=== PATIENT | male | born 1975 | race Caucasian/White ===

== ENCOUNTER → 2016-07-24 | Outpatient (CLI) | payer OTHER ==
[~2016-07-24] MED LIST: ASPI325T39 PO; BUSP15TA70 PO; BUSP1TAB46 PO; CZR50 PO; EPIN1INJ37 IM; EPP3/2 IM; LMS250 PO; LOSA50TA6 PO; PRT/40 PO; RANI150T2 PO; RBX750 PO; ZNTT/150 PO
== END | disposition home or self-care (01) ==
LOC: C.PATHSPEC 12:12
PROVIDERS: ATTEND Urology
DX: Z30.2 Encounter for sterilization (principal); D49.2 Neoplasm of unspecified behavior of bone, soft tissue, and skin

== ENCOUNTER 2016-08-07 21:27 | Emergency (ER) | payer OTHER ==
[~2016-08-07] VITALS: Ht 175.3 cm; Wt 94.0 kg
[~2016-08-07 21:27] MED LIST changes: -ASPI325T39 PO; -BUSP15TA70 PO; -BUSP1TAB46 PO; -CZR50 PO; -EPIN1INJ37 IM; -LMS250 PO; -LOSA50TA6 PO; -PRT/40 PO; -RANI150T2 PO; -RBX750 PO; -ZNTT/150 PO
[2016-08-07 21:32] VITALS: TEMP 37; Ht 175.3 cm; Wt 94.0 kg
[2016-08-07] MEDS ORDERED: BUSP1TAB46 PO (21:55)
[2016-08-07] MEDS ORDERED: LMS250 PO (21:55)
[2016-08-07] MEDS ORDERED: ASPI325T39 PO (21:56)
[2016-08-07 22:19] LABS: BASO % 0.4 %; BASO ABS # 0.03 K/uL (0-0.2); COMPLETE YES; EOS % 1.9 %; HEMATOCRIT 40.5 % (42-52); IG% 0.1 %; LYMPH % 25.1 %; LYMPH ABS # 1.94 K/uL (1.2-3.4); MEAN CELL VOLUME 86.4 fL (80-100); MEAN CORPUSCULAR HEMOGLOBIN 30.5 pg (25-34); MEAN CORPUSCULAR HGB CONC 35.3 g/dl (32-36); MEAN PLATELET VOLUME 9.8 fL (7.4-10.4); MONO % 8.7 %; NEUT % 63.8 %; PLATELET COUNT 253 K/uL (130-400); RED BLOOD COUNT 4.69 M/uL (4.7-6.1); WHITE BLOOD COUNT 7.72 K/uL (4.8-10.8)
--- NOTE | 2016-08-07 22:49 | DIAGNOSTIC IMAGING REPORT ---
CHEST ONE VIEW PORTABLE HISTORY: Atypical CHEST PAIN COMPARISON: Chest 09/13/2015. FINDINGS: The lungs are clear. Cardiac silhouette is normal in size. No pleural effusions. No pneumothorax. IMPRESSION: No acute process. Electronically signed by: Gianni Real M.D. 08/07/2016 10:48 PM Dictated Date/Time: 08/07/2016 10:46 PM
[2016-08-07 23:06] LABS: ALKALINE PHOSPHATASE 62 U/L (45-117); ALT/SGPT 17 U/L (12-78); BLOOD UREA NITROGEN 16 mg/dl (7-18); BUN/CREATININE RATIO 14.5 (10-20); CALCIUM 8.9 mg/dl (8.5-10.1); CARBON DIOXIDE 25 mmol/L (21-32); CHLORIDE 102 mmol/L (98-107); GLUCOSE 103 mg/dl (70-99)
[2016-08-07 23:12] LABS: POTASSIUM 3.9 mmol/L (3.5-5.1); SODIUM 139 mmol/L (136-145)
[2016-08-07 23:18] LABS: AST/SGOT 11 U/L (15-37)
--- NOTE | 2016-08-08 00:07 | EMERGENCY ROOM VISIT NOTE ---
History First contact with patient: 22:03 Chief Complaint: CHEST PAIN Stated Complaint: CHEST PAINS Nursing Triage Summary: Pt recently dx with HTN. Pt seen by PCP today, bloodwork done, no meds prescribed. Pt told to come to ED if he developed chest pain. Pt reports chest pain started appreeox 2 hours ago. Reports intermittent chest pain. History of Present Illness The patient is a 41 year old male who presents to the Emergency Room with complaints of a few episodes of chest pain lasted 30 seconds tonight. Patient states he's been stressed over his newly diagnosed high blood pressure. He found this out Thursday at a health fair. He saw his family care doctor today and had laboratory workup. He follows up in a few days to begin medications. He has not started anything. Patient states he was sitting there when the chest pain came on and lasted for about 30 seconds. He had 5 episodes of this. He is currently pain-free. Patient denies prolonged chest pain, radiating pain, dyspnea, abdominal pain, fever, chills, diaphoresis, nausea, vomiting, diarrhea, leg pain or swelling. No recent travel. He does not smoke. No diabetes. He does have a family history of heart disease of his father having heart attack at age 51. Review of Systems See HPI for pertinent positives & negatives. A total of 10 systems reviewed and were otherwise negative. Past Medical/Surgical History Hypertension, vasectomy Family History Heart disease Social History Smoking Status: Never Smoker Alcohol Use: none Drug Use: none Marital Status: Housing Status: lives with family Occupation Status: employed Current/Historical Medications Scheduled Aspirin (Aspirin Ec), 325 MG PO DIRECTED Buspirone Hcl (Buspirone Hcl), 7.5 MG PO HS Epinephrine (Epipen), 0.3 MG IM UD Terbinafine (Terbinafine HCl), 250 MG PO DAILY Allergies Coded Allergies: BEE STING (Verified Allergy, Severe, ANAPHYLAXIS, 08/07/16) Iodine (Verified Allergy, Unknown, ., 08/07/16) Penicillins (Verified Allergy, Unknown, ., 08/07/16) Shellfish (Verified Allergy, Unknown, ., 08/07/16) Physical Exam Vital Signs Date Time Temp Pulse Resp B/P Pulse Ox O2 Delivery O2 Flow Rate FiO2 08/07/16 22:40 79 20 154/98 Room Air 08/07/16 22:10 Room Air 08/07/16 22:10 Room Air 08/07/16 21:53 87 08/07/16 21:32 37.0 99 18 182/112 98 Room Air Physical Exam VITALS: Vitals are noted on the nurse's note and reviewed by myself. Vital signs hypertensive GENERAL: Pleasant male anxious-appearing, in no acute distress, nondiaphoretic, well-developed well-nourished. SKIN: The skin was without rashes, erythema, edema, or bruising. There is no tenting of the skin. Capillary reflex less than 2 seconds. HEAD: Normocephalic atraumatic. EARS: External auditory canals clear, tympanic membranes pearly de la torre without erythema or effusion bilaterally. EYES: Pupils equal round and reactive to light and accommodation. Conjunctivae without injection, sclerae without icterus. Extraocular movements intact. NOSE: Patent, turbinates without inflammation or discharge. MOUTH: Mucous membranes moist. Pharynx without erythema or exudate. Uvula midline. Airway patent. Tongue does not deviate. NECK: Supple without nuchal rigidity. No lymphadenopathy. No thyromegaly. Cervical spine is nontender. No JVD. HEART: Regular rate and rhythm without murmurs gallops or rubs. Chest nontender to palpation LUNGS: Clear to auscultation bilaterally without wheezes, rales or rhonchi. No dullness to percussion. No retractions or accessory muscle use. ABDOMEN: Positive bowel sounds x 4. Normal tympanic percussion. Soft, nontender, without masses or organomegaly. Duncan sign negative. No guarding or rebound tenderness. MUSCULOSKELETAL: No muscle atrophy, erythema, or edema noted. NEURO: Patient was alert and oriented to person place and time. Normal sensation to light and sharp touch. No focal neurological deficits. Medical Decision & Procedures Laboratory Results 08/07/16 21:40 Red Blood Count 4.69, Mean Corpuscular Volume 86.4, Mean Corpuscular Hemoglobin 30.5, Mean Corpuscular Hemoglobin Concent 35.3, Mean Platelet Volume 9.8, Neutrophils (%) (Auto) 63.8, Lymphocytes (%) (Auto) 25.1, Monocytes (%) (Auto) 8.7, Eosinophils (%) (Auto) 1.9, Basophils (%) (Auto) 0.4, Neutrophils # (Auto) 4.92, Lymphocytes # (Auto) 1.94, Monocytes # (Auto) 0.67, Eosinophils # (Auto) 0.15, Basophils # (Auto) 0.03 08/07/16 21:40 Test 08/07/16 21:40 08/07/16 23:34 White Blood Count 7.72 K/uL (4.8-10.8) Red Blood Count 4.69 M/uL (4.7-6.1) Hemoglobin 14.3 g/dL (14.0-18.0) Hematocrit 40.5 % (42-52) Mean Corpuscular Volume 86.4 fL (80-100) Mean Corpuscular Hemoglobin 30.5 pg (25-34) Mean Corpuscular Hemoglobin Concent 35.3 g/dl (32-36) Platelet Count 253 K/uL (130-400) Mean Platelet Volume 9.8 fL (7.4-10.4) Neutrophils (%) (Auto) 63.8 % Lymphocytes (%) (Auto) 25.1 % Monocytes (%) (Auto) 8.7 % Eosinophils (%) (Auto) 1.9 % Basophils (%) (Auto) 0.4 % Neutrophils # (Auto) 4.92 K/uL (1.4-6.5) Lymphocytes # (Auto) 1.94 K/uL (1.2-3.4) Monocytes # (Auto) 0.67 K/uL (0.11-0.59) Eosinophils # (Auto) 0.15 K/uL (0-0.5) Basophils # (Auto) 0.03 K/uL (0-0.2) RDW Standard Deviation 39.5 fL (36.4-46.3) RDW Coefficient of Variation 12.5 % (11.5-14.5) Immature Granulocyte % (Auto) 0.1 % Immature Granulocyte # (Auto) 0.01 K/uL (0.00-0.02) Anion Gap 12.0 mmol/L (3-11) Est Creatinine Clear Calc Drug Dose 102.1 ml/min Estimated GFR () 97.5 Estimated GFR (Non- 84.1 BUN/Creatinine Ratio 14.5 (10-20) Calcium Level 8.9 mg/dl (8.5-10.1) Total Bilirubin 0.3 mg/dl (0.2-1) Direct Bilirubin 0.1 mg/dl (0-0.2) Aspartate Amino Transf (AST/SGOT) 11 U/L (15-37) Alanine Aminotransferase (ALT/SGPT) 17 U/L (12-78) Alkaline Phosphatase 62 U/L (45-117) Troponin I < 0.015 ng/ml (0-0.045) Total Protein 8.2 gm/dl (6.4-8.2) Albumin 4.5 gm/dl (3.4-5.0) Lipase 143 U/L (73-393) Bedside Troponin I 0.000 ng/ml (0-0.045) ED Course Prior records/ancillary studies reviewed. Triage Nursing notes reviewed. Additional history obtained from family. The patient's history was concerning for chest pain. Differential diagnosis: Etiologies such as cardiac ischemia, aortic dissection, pulmonary embolism, pneumonia, pneumothorax, musculoskeletal, infections, pericarditis, myocarditis , esophageal rupture, gastrointestinal, as well as others were entertained. Physical examination: As above. ER treatment provided: Patient was observed On reassessment the patient felt better. Diagnostic interpretation by me: The electrocardiogram was negative for pathologic change. Normal sinus, normal , no acute ST-T wave changes. Impression normal sinus rhythm interpreted by myself The labs revealed 2 troponins negative 2 that are 2 hours prior Imaging studies: Chest x-ray as above CHEST ONE VIEW PORTABLE HISTORY: Atypical CHEST PAIN COMPARISON: Chest 09/13/2015. FINDINGS: The lungs are clear. Cardiac silhouette is normal in size. No pleural effusions. No pneumothorax. IMPRESSION: No acute process. Electronically signed by: Gianni Real M.D. Exam and history seem consistent with chest pain unlikely cardiac in etiology. Patient had 2 negative troponins. Symptoms are short-lived. Blood pressure did come down. He is advised to follow-up as scheduled this week with family care for further evaluation and workup for his blood pressure and chest pain symptoms tonight. He was advised to return to the immediate for prolonged chest pain, dyspnea, fevers, worsening signs or symptoms or as needed. By the evaluation outlined above emergent etiologies such as cardiac ischemia, aortic dissection, pulmonary embolism, pneumonia, pneumothorax, infections, pericarditis, myocarditis, gastrointestinal, as well as others were deemed relatively unlikely. The pt informed about the findings as listed above. All questions were answered and pleased with the treatment. Return instructions were outlined and the patient was discharged in stable condition. Referral: The patient was referred back to primary care physician for follow-up in 2 to 3 days for a recheck of the current condition. case reviewed with my Attending. Medical Decision As above Impression Primary Impression: Precordial chest pain Departure Information Dispostion Home / Self-Care Condition GOOD Referrals Rey Ivan III, CRNP (PCP) Patient Instructions My [facility] Additional Instructions Decrease caffeine, alcohol, tobacco and salt intake. Monitor your blood pressure. Acetaminophen(Tylenol) may be used for fever or pain. Use 1000mg every six hours as needed. Avoid using more than 3000mg in a 24 hour period. Rest and drink plenty of fluids as tolerated. Continue current medications. Avoid strenuous activities and anything that worsens your pain. Resume normal activities once your symptoms resolve. Return to the ER immediately for worsening or persistent chest pain, abdominal pain, vomiting, fevers, chest pains, difficulty breathing, worsening of your condition, or as needed. Follow up with your primary physician in 2-3 days for a recheck of your current condition.
[2016-08-08 00:24] VITALS: BP 147/95; PULSE 81; O2SAT 98
[2016-10-07] MEDS ORDERED: ZNTT/150 PO (08:50)
[2016-10-07] MEDS ORDERED: BUSP15TA70 PO (08:50)
[2016-10-07] MEDS ORDERED: LOSA50TA6 PO (08:50)
== END 2016-08-08 00:25 | disposition home or self-care (01) ==
LOC: C.EDB 21:28
DX: R07.2 Precordial pain (principal); I10 Essential (primary) hypertension

== ENCOUNTER → 2016-08-07 | Outpatient (CLI) | payer OTHER ==
[2016-08-07 18:04] LABS: ALT/SGPT 17 U/L (12-78); AST/SGOT 9 U/L (15-37); BLOOD UREA NITROGEN 16 mg/dl (7-18); BUN/CREATININE RATIO 14.3 (10-20); CALCIUM 8.9 mg/dl (8.5-10.1); CARBON DIOXIDE 27 mmol/L (21-32); CHLORIDE 106 mmol/L (98-107); GLUCOSE 88 mg/dl (70-99); MAGNESIUM 2.1 mg/dl (1.8-2.4); POTASSIUM 4.3 mmol/L (3.5-5.1); SODIUM 141 mmol/L (136-145)
[2016-08-07 18:13] LABS: ALB/GLOB RATIO 1.2 (0.9-2); ALKALINE PHOSPHATASE 63 U/L (45-117)
== END | disposition home or self-care (01) ==
LOC: C.LAB1850 16:51
PROVIDERS: ATTEND Nurse Practitioner Family
DX: R03.0 Elevated blood-pressure reading, without diagnosis of hypertension (principal)

== ENCOUNTER → 2016-10-08 | Day surgery (SDC) | payer OTHER ==
[2016-10-07 08:51] VITALS: Ht 175.3 cm; Wt 88.6 kg
[~2016-10-08] VITALS: Ht 175.3 cm; Wt 88.6 kg
[~2016-10-08] MED LIST changes: +BUSP15TA70 PO; +CZR50 PO; +EPIN1INJ37 IM; +LABETALOL HCL IV 5 MG/ML 20ML IV ONE; +LIDOCAINE HCL 2% 2 ML VIAL (20MG/ML) ONE; +LOSA50TA6 PO; +MIDAZOLAM HCL 1 MG/ML 2ML VIAL ONE; +ONDANSETRON INJ 2 MG/ML 2 ML VIAL ONE; +PANT40TA2 PO; +PROPOFOL IV EMULSION 10 MG/ML 20 ML VIAL IV ONE; +RANI150T2 PO; +RBX750 PO; +SODIUM CHLORIDE 0.9% 500ML 500 ML IV ONE; +ZNTT/150 PO
--- NOTE | 2016-10-08 14:21 | Endo History and Physical ---
History & Physical Date of Service: Oct 08, 2016. Chief Complaint: epigastric pain,dysphagia Referring Physician: RAMO Prather III History of Present Illness 41 yo CM who presents for EGD secondary to epigastric abdominal pain and dysphagia. Past Surgical History Hx Cardiac Surgery: No Hx Internal Defibrillator: No Hx Pacemaker: No Hx Abdominal Surgery: No Hx Post-Op Nausea and Vomiting: No Hx Cancer Surgery: No Hx Thoracic Surgery: No Hx Orthopedic: Yes (ORIF RT FEMUR) Hx Urinary Tract Surgery: No Family History Polyp Social History Smoking Status: Never Smoker Hx Substance Use: No Hx Alcohol Use: No Allergies Coded Allergies: BEE STING (Verified Allergy, Severe, ANAPHYLAXIS, 10/07/16) Penicillins (Verified Allergy, Unknown, HIVES, 10/07/16) Uncoded Allergies: IODINE IN SHELLFISH (Allergy, Unknown, hives, 10/08/16) Current Medications Reported Home Medications Medications Dose Route/Sig Max Daily Dose Days Date Category Buspar (Buspirone Hcl) 15 Mg Tab 0.5 Tab PO BID 30 10/07/16 Reported Zantac (Ranitidine HCl) 150 Mg Tab 150 Mg PO BID 10/07/16 Reported Cozaar (Losartan Potassium) 50 Mg Tab 50 Mg PO BID 10/07/16 Reported Epipen (Epinephrine) 0.3 Mg/0.3 Ml Inj 0.3 Mg IM UD 09/13/15 Reported Vital Signs Weight (Kilograms): 88.64 Height (Feet): 5 Height (Inches): 9 Date Time Temp Pulse Resp B/P Pulse Ox O2 Delivery O2 Flow Rate FiO2 10/08/16 14:13 36.8 96 20 156/83 100 Room Air Physical Exam General Appearance: WD/WN, no apparent distress Respiratory/Chest: Auscultation: breath sounds normal Cardiovascular: Heart Auscultation: RRR Abdomen: Bowel Sounds: normal Inspection & Palpation: soft, non-distended, no tenderness, guarding & rebound Assessment and Plan Assessment: 41 yo CM who presents for EGD secondary to epigastric abdominal pain and dysphagia. Plan: Proceed with EGD.
--- NOTE | 2016-10-08 15:29 | GI REPORT ---
Procedure Date: 10/08/2016 2:47 PM Procedure: Upper GI endoscopy Indications: Epigastric abdominal pain, Dysphagia, Unexplained chest pain Medicines: Monitored Anesthesia Care Complications: No immediate complications. Estimated Blood Loss: Estimated blood loss: none. Procedure: Pre-Anesthesia Assessment: - Prior to the procedure, a History and Physical was performed, and patient medications and allergies were reviewed. The patient's tolerance of previous anesthesia was also reviewed. The risks and benefits of the procedure and the sedation options and risks were discussed with the patient. All questions were answered, and informed consent was obtained. Prior Anticoagulants: The patient has taken no previous anticoagulant or antiplatelet agents. ASA Grade Assessment: II - A patient with mild systemic disease. After reviewing the risks and benefits, the patient was deemed in satisfactory condition to undergo the procedure. After obtaining informed consent, the endoscope was passed under direct vision. Throughout the procedure, the patient's blood pressure, pulse, and oxygen saturations were monitored continuously. The scope was introduced through the mouth, and advanced to the second part of duodenum. The upper GI endoscopy was accomplished without difficulty. The patient tolerated the procedure well. Findings: One moderate benign-appearing, intrinsic stenosis was found. This measured 1.5 cm (inner diameter) x 1 cm (in length) and was traversed. A TTS dilator was passed through the scope. Dilation with a 15-16.5-18 mm balloon (to a maximum balloon size of 18 mm) and an 18-19-20 mm balloon (to a maximum balloon size of 20 mm) dilator was performed. The dilation site was examined and showed moderate improvement in luminal narrowing. Biopsies were obtained with cold forceps for histology in a targeted manner in the middle third of the esophagus. The stomach was normal. The examined duodenum was normal. Biopsies for histology were taken with a cold forceps for evaluation of celiac disease. Impression: - Benign-appearing esophageal stenosis. Dilated. - Normal stomach. - Normal examined duodenum. Biopsied. - Biopsies were obtained in the middle third of the esophagus. Recommendation: - Resume previous diet. - Continue present medications. - Await pathology results. - Return to GI office as previously scheduled. Cuba Melendez DO 10/08/2016 3:29:23 PM This report has been signed electronically. Note Initiated On: 10/08/2016 2:47 PM I attest to the content of the Intraoperative Record and orders documented therein, exceptions below
--- NOTE | 2016-10-08 15:30 | Discharge Instructions ---
Endoscopy Patient Instructions Date / Procedure(s) Performed Oct 08, 2016. EGD Allergy Information Coded Allergies: BEE STING (Verified Allergy, Severe, ANAPHYLAXIS, 10/08/16) Penicillins (Verified Allergy, Unknown, HIVES, 10/08/16) Uncoded Allergies: IODINE IN SHELLFISH (Allergy, Unknown, hives, 10/08/16) Discharge Date / Findings Oct 08, 2016. Esophageal stricture s/p dilation to 20mm Esophageal biopsies Duodenal biopsies Medication Instructions OK to resume all medications today as prescribed. Reported Home Medications Medications Dose Route/Sig Max Daily Dose Days Date Category Buspar (Buspirone Hcl) 15 Mg Tab 0.5 Tab PO BID 30 10/07/16 Reported Zantac (Ranitidine HCl) 150 Mg Tab 150 Mg PO BID 10/07/16 Reported Cozaar (Losartan Potassium) 50 Mg Tab 50 Mg PO BID 10/07/16 Reported Epipen (Epinephrine) 0.3 Mg/0.3 Ml Inj 0.3 Mg IM UD 09/13/15 Reported Provider Instructions Activity Restrictions - No exercising or heavy lifting for 24 hours. - Do not drink alcohol the day of the procedure. - Do not drive a car or operate machinery until the day after the procedure. - Do not make any important decisions or sign important papers in 24 hours after the procedure. Following Day: - Return to full activity which may include returning to work/school. Diet Start your diet with liquids and light foods (jello, soup, juice, toast). Then eat your usual diet if not nauseated. Treatment For Common After Affects For mild abdominal pain, bloating, or excessive gas: - Rest - Eat lightly - Lie on right side Follow-Up Information Follow-up with RAMO Prather III as scheduled Anesthesia Information What You Should Know You have had a procedure that required some medicine to reduce anxiety and discomfort. This treatment is called moderate sedation. After receiving the treatment, you may be sleepy, but you will be able to breathe on your own. The effects of the treatment may last for several hours. Follow these instructions along with Activity/Diet recommendations noted above: * Do NOT do anything where dizziness or clumsiness would be dangerous. * Rest quietly at home today, then you can be up and about tomorrow. * Have a responsible person stay with you the rest of today. * You may have had an I.V. today. If so, you may take the dressing off later today. Recommendations Call your doctor if: * Trouble breathing * Continuous vomiting for more than 24 hours * Temperature above 101 degrees * Severe abdominal pain or bloating * Pain not relieved by pain medicine ordered * There is increased drainage or redness from any incision * A large amount of rectal bleeding greater than 2-3 tablespoons. (If you had a polyp/s removed or have hemorrhoids, a small amount of blood - from the rectum is to be expected.) * You have any unanswered questions or concerns. IN THE EVENT OF A SERIOUS EMERGENCY, GO TO THE NEAREST EMERGENCY ROOM Your discharge instructions were prepared by provider Cuba Melendez. Patient Instructions Signature Page Ovidio Thopmson Patient (or Guardian) Signature/Date: I have read and understand the instructions given to me by my caregivers. Caregiver/RN/Doctor Signature/Date: The above-named patient and/or guardian has received patient instructions on this date. + Original Patient Signature Page (only) stays with chart. Please make copy for patient.
[2016-10-08 15:44] VITALS: BP 130/82; PULSE 80; O2SAT 99
--- NOTE | 2016-10-08 16:24 | Anesthesia Progress Nt - [facility] ---
Anesthesia Post Op Note Date & Time Oct 08, 2016 at 16:23 Vital Signs Pain Intensity: 0 Vital Signs Past 12 Hours Date Time Temp Pulse Resp B/P Pulse Ox O2 Delivery O2 Flow Rate FiO2 10/08/16 15:44 80 16 130/82 99 Room Air 10/08/16 15:29 83 16 126/85 100 Room Air 10/08/16 15:14 84 16 113/69 100 Room Air 10/08/16 14:13 36.8 96 20 156/83 100 Room Air Notes Mental Status: alert / awake / arousable, participated in evaluation Pt Amnestic to Procedure: Yes Nausea / Vomiting: adequately controlled Pain: adequately controlled Airway Patency, RR, SpO2: stable & adequate BP & HR: stable & adequate Hydration State: stable & adequate Anesthetic Complications: no major complications apparent
--- NOTE | 2016-10-08 16:27 | Anesthesiology Progress Note ---
Anesthesia Post Op Note Date & Time Oct 08, 2016 at 16:26 Vital Signs Pain Intensity: 0 Vital Signs Past 12 Hours Date Time Temp Pulse Resp B/P Pulse Ox O2 Delivery O2 Flow Rate FiO2 10/08/16 15:44 80 16 130/82 99 Room Air 10/08/16 15:29 83 16 126/85 100 Room Air 10/08/16 15:14 84 16 113/69 100 Room Air 10/08/16 14:13 36.8 96 20 156/83 100 Room Air Notes Mental Status: alert / awake / arousable, participated in evaluation Pt Amnestic to Procedure: Yes Nausea / Vomiting: adequately controlled Pain: adequately controlled Airway Patency, RR, SpO2: stable & adequate BP & HR: stable & adequate Hydration State: stable & adequate Anesthetic Complications: no major complications apparent
== END | disposition home or self-care (01) ==
LOC: C.GI 13:55
PROVIDERS: ATTEND Internal Medicine
DX: K22.2 Esophageal obstruction (principal); K31.5 Obstruction of duodenum; R07.89 Other chest pain; Z98.890 Other specified postprocedural states; Z91.041 Radiographic dye allergy status; Z88.0 Allergy status to penicillin

== ENCOUNTER → 2017-02-27 | Outpatient (CLI) | payer OTHER ==
[~2017-02-27] MED LIST changes: -LABETALOL HCL IV 5 MG/ML 20ML IV ONE; -LIDOCAINE HCL 2% 2 ML VIAL (20MG/ML) ONE; -MIDAZOLAM HCL 1 MG/ML 2ML VIAL ONE; -ONDANSETRON INJ 2 MG/ML 2 ML VIAL ONE; -PANT40TA2 PO; -PROPOFOL IV EMULSION 10 MG/ML 20 ML VIAL IV ONE; +PRT/40 PO; -SODIUM CHLORIDE 0.9% 500ML 500 ML IV ONE
--- NOTE | 2017-02-27 10:47 | DIAGNOSTIC IMAGING REPORT ---
CERVICAL SPINE 2 OR 3 VIEWS CLINICAL HISTORY: Upper back and arm pain. COMPARISON STUDY: Cervical spine radiographs June 19, 2010. FINDINGS: Straightening of the normal cervical lordosis is noted. There is minimal disc space narrowing at C5-C6 with osteophytosis. No fracture or suspicious lesion is identified by radiography. There is mild facet arthrosis at C2-C3. IMPRESSION: 1. Mild disc space narrowing and osteophytosis at C5-C6. 2. No cervical spine fracture. Electronically signed by: Harvey Shin M.D. 02/27/2017 10:46 AM Dictated Date/Time: 02/27/2017 10:45 AM
--- NOTE | 2017-02-27 10:50 | DIAGNOSTIC IMAGING REPORT ---
CHEST AND ABDOMEN 2 VIEWS HISTORY: R10.30 Lower abdominal pain COMPARISON: Chest 08/07/2016. FINDINGS: The lungs are clear. The cardiomediastinal silhouette is within normal limits. There is no pneumoperitoneum or pneumatosis. The bowel gas pattern is unremarkable. No evidence for bowel obstruction. No pathologic calcifications. IMPRESSION: No acute cardiopulmonary process. No evidence for bowel obstruction. Electronically signed by: Gianni Real M.D. 02/27/2017 10:48 AM Dictated Date/Time: 02/27/2017 10:45 AM
== END | disposition home or self-care (01) ==
LOC: C.RAD1850 09:46
PROVIDERS: ATTEND Nurse Practitioner Adult Health
DX: R10.30 Lower abdominal pain, unspecified (principal); M54.9 Dorsalgia, unspecified

== ENCOUNTER → 2017-03-06 | Outpatient (CLI) | payer OTHER ==
[2017-03-12 22:31] LABS: IGA SERUM 187 mg/dL (81-463); TIS TRANS IGA 1 U/mL (<4)
== END | disposition home or self-care (01) ==
LOC: C.LAB1850 15:42
PROVIDERS: ATTEND Physician Assistant
DX: K22.2 Esophageal obstruction (principal)

== ENCOUNTER 2017-03-10 18:34 | Emergency (ER) | payer OTHER ==
[~2017-03-10] VITALS: Ht 172.7 cm; Wt 86.6 kg
[~2017-03-10 18:34] MED LIST changes: -CZR50 PO; -EPIN1INJ37 IM; -PRT/40 PO; -RANI150T2 PO; -RBX750 PO
[2017-03-10 18:48] VITALS: Ht 172.7 cm; Wt 86.6 kg
[2017-03-10] MEDS ORDERED: SODIUM CHLORIDE 0.9% 1000ML 1,000 ML IV STA (20:22)
[2017-03-10] MEDS ORDERED: DiphenhydrAMINE HCL 50 MG/ML VIAL IV STA (20:22)
--- NOTE | 2017-03-10 20:29 | EMERGENCY ROOM VISIT NOTE ---
History Report prepared by Johana: Duane Huffman Under the Supervision of: Dr. Imer Blackmon M.D. First contact with patient: 20:13 Chief Complaint: GI ASSESSMENT Stated Complaint: STOMACH CRAMPING AND BLOATING Nursing Triage Summary: Upper abd pain for a couple months. Intermittent diarrhea. Pt reports pain is the same throughout the day, nothing makes it better/worse. History of Present Illness The patient is a 42 year old male who presents to the Emergency Room with complaints of constant, cramping to his middle and lower abdomen beginning a few months ago. The patient states that he has a colonoscopy scheduled in two weeks. He reports that he called his gastrologist earlier this morning and was was told to go the ED if the pain is too severe. The patient notes that he has not been taking anything for his pain, and he also feels bloated. He states that he had intermittent diarrhea, but he has not had any for the past three days. The patient denies vomiting, hematemesis, urinary symptoms, falling, shortness of breath, weakness to his legs, loss of bowel control, and loss of urination. 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 The patient denies a history of diverticulitis. Source of History: patient Onset: few months ago Position: abdomen (middle and lower) Quality: cramping Timing: constant Associated Symptoms: + diarrhea, No SOB, No vomiting, No urinary symptoms, No weakness Note: Associated symptoms: bloating Denies: hematemesis, falling and loss of bowel control Review of Systems See HPI for pertinent positives & negatives. A total of 10 systems reviewed and were otherwise negative. Past Medical & Surgical The patient denies any past medical history. Family History Heart disease Social History Smoking Status: Never Smoker Alcohol Use: none Drug Use: none Marital Status: Housing Status: lives with family Occupation Status: employed Current/Historical Medications Scheduled Losartan Potassium (Losartan Potassium), 50 MG PO BID Pantoprazole (Pantoprazole Sodium), 40 MG PO QAM Scheduled PRN Epinephrine (Epinephrine), 0.3 MG IM UD PRN for ALLERGIC REACTION Methocarbamol (Methocarbamol), 750 MG PO QID PRN for Muscle Relaxer Ranitidine HCl (Ranitidine HCl), 150 MG PO BID PRN for Heartburn/Acid Reflux Allergies Coded Allergies: BEE STING (Verified Allergy, Severe, ANAPHYLAXIS, 4/5/17) Penicillins (Verified Allergy, Unknown, HIVES, 10/08/16) Uncoded Allergies: IODINE IN SHELLFISH (Allergy, Unknown, hives, 10/08/16) Physical Exam Vital Signs Date Time Temp Pulse Resp B/P (MAP) Pulse Ox O2 Delivery O2 Flow Rate FiO2 03/10/17 22:28 36.8 85 16 161/94 98 03/10/17 21:34 161/94 98 Room Air 03/10/17 21:01 85 16 177/101 99 Room Air 03/10/17 18:48 36.8 82 18 136/86 100 Room Air Physical Exam GENERAL: Patient is well appearing and in minimal distress. HEENT: No acute trauma, normocephalic atraumatic, mucous membranes moist, no nasal congestion, no scleral icterus. NECK: No stridor, no adenopathy, no meningismus, trachea is midline. LUNGS: No dyspnea. Clear to auscultation and equal bilaterally. No wheeze, no rhonchi. HEART: Regular rate and rhythm. No murmurs, rubs, gallops appreciated. ABDOMEN: Soft, vague diffuse tenderness upon palpation, bowel sounds positive, no masses appreciated, no peritonitis. BACK: No midline tenderness, no CVA tenderness EXTREMITIES: Normal motion all extremities, no cyanosis, no edema. NEUROLOGIC: Alert and oriented, no acute motor or sensory deficits, no focal weakness, cranial nerves grossly intact. SKIN: No rash, no jaundice, no diaphoresis. Medical Decision & Procedures ER Provider Diagnostic Interpretation: CT results as stated below per interpretation by me and the radiologist: ABD/PELVIS IV CONTRAST ONLY CT DOSE: 458.00 mGy.cm HISTORY: Pain diffuse, worsening abdominal pain. Worst LLQ TECHNIQUE: Multiaxial CT images of the abdomen and pelvis were performed following the use of intravenous contrast. A dose lowering technique was utilized adhering to the principles of ALARA. COMPARISON STUDY: None. FINDINGS: Lung bases are clear. Small hiatal hernia. Liver spleen and pancreas are unremarkable. No evidence for gallbladder distention. Kidneys enhance uniformly. There is no evidence for hydronephrosis. Bowel pattern is considered nonobstructive. The appendix is normal. Mild wall thickening of the sigmoid colon with a trace amount of pericolonic infiltrative change. This is seen to a lesser extent involving the distal descending colon. There is no evidence for abscess collection or obstruction. There is no significant free fluid is pelvic cul-de-sac. Inguinal regions are unremarkable. IMPRESSION: 1. Findings consistent with a mild nonspecific colitis involving the sigmoid and distal descending colonic region. 2. No evidence for abscess collection or obstruction. 3. Study is otherwise negative. The above report was generated using voice recognition software. It may contain grammatical, syntax or spelling errors. Electronically signed by: Hieu Fernandez M.D. 03/10/2017 9:32 PM Dictated Date/Time: 03/10/2017 9:29 PM Laboratory Results 03/10/17 20:13 Red Blood Count 4.80, Mean Corpuscular Volume 87.9, Mean Corpuscular Hemoglobin 29.6, Mean Corpuscular Hemoglobin Concent 33.6, Mean Platelet Volume 9.4, Neutrophils (%) (Auto) 63.6, Lymphocytes (%) (Auto) 24.4, Monocytes (%) (Auto) 9.1, Eosinophils (%) (Auto) 2.4, Basophils (%) (Auto) 0.4, Neutrophils # (Auto) 4.44, Lymphocytes # (Auto) 1.71, Monocytes # (Auto) 0.64, Eosinophils # (Auto) 0.17, Basophils # (Auto) 0.03 03/10/17 20:13 Test 03/10/17 20:13 03/10/17 21:43 White Blood Count 7.00 K/uL (4.8-10.8) Red Blood Count 4.80 M/uL (4.7-6.1) Hemoglobin 14.2 g/dL (14.0-18.0) Hematocrit 42.2 % (42-52) Mean Corpuscular Volume 87.9 fL (80-100) Mean Corpuscular Hemoglobin 29.6 pg (25-34) Mean Corpuscular Hemoglobin Concent 33.6 g/dl (32-36) Platelet Count 263 K/uL (130-400) Mean Platelet Volume 9.4 fL (7.4-10.4) Neutrophils (%) (Auto) 63.6 % Lymphocytes (%) (Auto) 24.4 % Monocytes (%) (Auto) 9.1 % Eosinophils (%) (Auto) 2.4 % Basophils (%) (Auto) 0.4 % Neutrophils # (Auto) 4.44 K/uL (1.4-6.5) Lymphocytes # (Auto) 1.71 K/uL (1.2-3.4) Monocytes # (Auto) 0.64 K/uL (0.11-0.59) Eosinophils # (Auto) 0.17 K/uL (0-0.5) Basophils # (Auto) 0.03 K/uL (0-0.2) RDW Standard Deviation 40.9 fL (36.4-46.3) RDW Coefficient of Variation 12.6 % (11.5-14.5) Immature Granulocyte % (Auto) 0.1 % Immature Granulocyte # (Auto) 0.01 K/uL (0.00-0.02) Anion Gap 5.0 mmol/L (3-11) Est Creatinine Clear Calc Drug Dose 105.1 ml/min Estimated GFR () 108.6 Estimated GFR (Non- 93.7 BUN/Creatinine Ratio 11.1 (10-20) Calcium Level 9.1 mg/dl (8.5-10.1) Total Bilirubin 0.4 mg/dl (0.2-1) Direct Bilirubin 0.1 mg/dl (0-0.2) Aspartate Amino Transf (AST/SGOT) 12 U/L (15-37) Alanine Aminotransferase (ALT/SGPT) 14 U/L (12-78) Alkaline Phosphatase 57 U/L (45-117) C-Reactive Protein < 0.29 mg/dl (0-0.29) Total Protein 8.0 gm/dl (6.4-8.2) Albumin 4.3 gm/dl (3.4-5.0) Lipase 125 U/L (73-393) Urine Color YELLOW Urine Appearance CLEAR (CLEAR) Urine pH 6.0 (4.5-7.5) Urine Specific Point Clear 1.034 (1.000-1.030) Urine Protein NEG (NEG) Urine Glucose (UA) NEG (NEG) Urine Ketones NEG (NEG) Urine Occult Blood NEG (NEG) Urine Nitrite NEG (NEG) Urine Bilirubin NEG (NEG) Urine Urobilinogen NEG (NEG) Urine Leukocyte Esterase NEG (NEG) Urine WBC (Auto) 1-5 /hpf (0-5) Urine RBC (Auto) 0-4 /hpf (0-4) Urine Hyaline Casts (Auto) 0 /lpf (0-5) Urine Epithelial Cells (Auto) 0-5 /lpf (0-5) Urine Bacteria (Auto) NEG (NEG) Laboratory results as reviewed by me. Medications Administered Medications (Trade) Dose Ordered Sig/Elizabeth Route Start Time Stop Time Status Last Admin Dose Admin Sodium Chloride 1,000 ml @ 999 mls/hr Q1H1M STAT IV 03/10/17 20:22 03/10/17 21:22 DC 03/10/17 20:40 999 MLS/HR Diphenhydramine HCl (Benadryl Inj) 50 mg NOW STAT IV 03/10/17 20:22 03/10/17 20:26 DC 03/10/17 20:40 50 MG ED Course 2016: The patient was evaluated in room A11A. A complete history and physical exam was performed. 2021: Ordered Benadryl Inj 50mg IV, Sodium Chloride 1000 ml @ 999 mls/hr IV 2022: The patient states that he has had a CT with IV contrast precviously. He felt that he did not have problems with it. He notes that it is shellfish that he has had problems with. He notes he does not swell up, and he understands the risks. 2207: I discussed the patient's case with MONISHA Vásquez. The patient will be contacted tomorrow morning. 2218: Reevaluated the patient. Discussed results and discharge instructions: he verbalized understanding and agreement. The patient is ready for discharge. Medical Decision Differential: Appendicitis, Diverticulitis, PUD/Gastritis, Biliary Pathology, UTI, Pyelonephritis, Renal Colic, Bowel Obstruction, amongst other pathologies entertained. 42 yr old male arrives with diffuse mild/mod abdominal discomfort which comes and goes over last few months associated with periodic diarrhea. Otherwise healthy without other complaints. Labs unremarkable though with persistent symptoms and sent by GI for CT seems reasonable proceeding with CT. CT risks reviewed. Benadryl given allergy to "iodine in shellfish" though notes previously tolerated IV contrast. CT with colitis though otherwise negative. Reviewed with GI who agree with no meds at this time and will contact in am to set up earlier colonscopy is possible. Stable and comfortable with this plan. Reviewed symptoms requiring RTED. Consults Time Called: 2148 Consulting Physician: MONISHA Vásquez Returned Call: [phone] I discussed the patient's case with MONISHA Vásquez. The patient will be contacted tomorrow morning. Impression Primary Impression: Colitis Scribe Attestation The scribe's documentation has been prepared under my direction and personally reviewed by me in its entirety. I confirm that the note above accurately reflects all work, treatment, procedures, and medical decision making performed by me. Departure Information Dispostion Home / Self-Care Referrals Rey Ivan III, CRNP (PCP) Forms HOME CARE DOCUMENTATION FORM, IMPORTANT VISIT INFORMATION Patient Instructions My [facility] Additional Instructions Avoid NSAID medications. You wish to stick to a bland diet over the next few days. Follow up with GI specialist as planned. Return if worsening pain, vomiting, fevers, or other concerns.
[2017-03-10 20:46] LABS: BASO % 0.4 %; BASO ABS # 0.03 K/uL (0-0.2); COMPLETE YES; EOS % 2.4 %; HEMATOCRIT 42.2 % (42-52); IG% 0.1 %; LYMPH % 24.4 %; LYMPH ABS # 1.71 K/uL (1.2-3.4); MEAN CELL VOLUME 87.9 fL (80-100); MEAN CORPUSCULAR HEMOGLOBIN 29.6 pg (25-34); MEAN CORPUSCULAR HGB CONC 33.6 g/dl (32-36); MEAN PLATELET VOLUME 9.4 fL (7.4-10.4); MONO % 9.1 %; NEUT % 63.6 %; PLATELET COUNT 263 K/uL (130-400)
[2017-03-10 21:02] LABS: BUN/CREATININE RATIO 11.1 (10-20); CALCIUM 9.1 mg/dl (8.5-10.1); POTASSIUM 4.1 mmol/L (3.5-5.1)
[2017-03-10] MEDS ORDERED: CZR50 PO (21:21)
[2017-03-10] MEDS ORDERED: RANI150T2 PO (21:21)
[2017-03-10] MEDS ORDERED: RBX750 PO (21:21)
[2017-03-10] MEDS ORDERED: EPIN1INJ37 IM (21:21)
[2017-03-10] MEDS ORDERED: PRT/40 PO (21:21)
[2017-03-10] MEDS ORDERED: OPTIRAY 320 IV PRN (21:30)
--- NOTE | 2017-03-10 21:34 | DIAGNOSTIC IMAGING REPORT ---
ABD/PELVIS IV CONTRAST ONLY CT DOSE: 458.00 mGy.cm HISTORY: Pain diffuse, worsening abdominal pain. Worst LLQ TECHNIQUE: Multiaxial CT images of the abdomen and pelvis were performed following the use of intravenous contrast. A dose lowering technique was utilized adhering to the principles of ALARA. COMPARISON STUDY: None. FINDINGS: Lung bases are clear. Small hiatal hernia. Liver spleen and pancreas are unremarkable. No evidence for gallbladder distention. Kidneys enhance uniformly. There is no evidence for hydronephrosis. Bowel pattern is considered nonobstructive. The appendix is normal. Mild wall thickening of the sigmoid colon with a trace amount of pericolonic infiltrative change. This is seen to a lesser extent involving the distal descending colon. There is no evidence for abscess collection or obstruction. There is no significant free fluid is pelvic cul-de-sac. Inguinal regions are unremarkable. IMPRESSION: 1. Findings consistent with a mild nonspecific colitis involving the sigmoid and distal descending colonic region. 2. No evidence for abscess collection or obstruction. 3. Study is otherwise negative. The above report was generated using voice recognition software. It may contain grammatical, syntax or spelling errors. Electronically signed by: Hieu Fernandez M.D. 03/10/2017 9:32 PM Dictated Date/Time: 03/10/2017 9:29 PM
[2017-03-10 22:02] LABS: URINE APPEARANCE CLEAR (CLEAR); URINE BILIRUBIN NEG (NEG); URINE COLOR YELLOW; URINE EPITHELIAL CELL AUTO 0-5 /lpf (0-5); URINE NITRITE NEG (NEG); URINE SPECIFIC GRAVITY 1.034 (1.000-1.030); UROBILINOGEN NEG (NEG); ZZUR CULT IF INDIC CLEAN CATCH NO
[2017-03-10 22:05] LABS: MANUAL MICROSCOPIC REQUIRED? NO; REVIEW REQ? NO
[2017-03-10 22:28] VITALS: BP 161/94; PULSE 85; TEMP 36.8; O2SAT 98
== END 2017-03-10 22:29 | disposition home or self-care (01) ==
LOC: C.EDB 18:34 → C.EDA 22:29
DX: K52.9 Noninfective gastroenteritis and colitis, unspecified (principal); Z82.49 Family history of ischemic heart disease and other diseases of the circulatory system

== ENCOUNTER → 2017-03-13 | Day surgery (SDC) | payer OTHER ==
[~2017-03-13] VITALS: Ht 172.7 cm; Wt 84.1 kg
[~2017-03-13] MED LIST changes: -BUSP15TA70 PO; +CZR50 PO; +EPIN1INJ37 IM; -EPP3/2 IM; +LIDOCAINE HCL 2% 2 ML VIAL (20MG/ML) ONE; -LOSA50TA6 PO; +MIDAZOLAM HCL 1 MG/ML 2ML VIAL ONE; +ONDANSETRON INJ 2 MG/ML 2 ML VIAL ONE; +PROPOFOL IV EMULSION 10 MG/ML 20 ML VIAL IV ONE; +PRT/40 PO; +RANI150T2 PO; +RBX750 PO; +SODIUM CHLORIDE 0.9% 500ML 500 ML IV ONE; -ZNTT/150 PO
--- NOTE | 2017-03-13 12:54 | Endo History and Physical ---
History & Physical Date of Service: Mar 13, 2017. Chief Complaint: Diarrhea Referring Physician: Dr. Ivan History of Present Illness 42 yo CM who presents for colonoscopy secondary to diarrhea. Past Surgical History Hx Cardiac Surgery: No Hx Internal Defibrillator: No Hx Pacemaker: No Hx Abdominal Surgery: No Hx Post-Op Nausea and Vomiting: No Hx Cancer Surgery: No Hx Thoracic Surgery: No Hx Orthopedic: Yes (ORIF RT FEMUR) Hx Urinary Tract Surgery: No Social History Smoking Status: Never Smoker Hx Substance Use: No Hx Alcohol Use: No Allergies Coded Allergies: BEE STING (Verified Allergy, Severe, ANAPHYLAXIS, 03/13/17) Penicillins (Verified Allergy, Unknown, HIVES, 03/13/17) Uncoded Allergies: IODINE IN SHELLFISH (Allergy, Unknown, hives, 10/08/16) Current Medications Reported Home Medications Medications Dose Route/Sig Max Daily Dose Days Date Category Dose Instructions Ranitidine HCl 150 Mg Tab 150 Mg PO BID PRN 03/10/17 Reported Epinephrine 0.3 Mg/0.3 Ml Inj 0.3 Mg IM UD PRN 03/10/17 Reported Losartan Potassium 50 Mg Tab 50 Mg PO BID 03/10/17 Reported Methocarbamol 750 Mg Tab 750 Mg PO QID PRN 03/10/17 Reported Pantoprazole Sodium (Pantoprazole) 40 Mg Tab 40 Mg PO QAM 03/10/17 Reported TAKE THIS MEDICATION ONCE DAILY 30 MINUTES BEFORE BREAKFAST Physical Exam General Appearance: WD/WN, no apparent distress Respiratory/Chest: Auscultation: breath sounds normal Cardiovascular: Heart Auscultation: RRR Abdomen: Bowel Sounds: normal Inspection & Palpation: soft, non-distended, no tenderness, guarding & rebound Assessment and Plan Assessment: 42 yo CM who presents for colonoscopy secondary to diarrhea. Plan: Proceed with colonoscopy
[2017-03-13 12:57] VITALS: Ht 172.7 cm; Wt 84.1 kg
[2017-03-13 13:03] VITALS: TEMP 36.8
--- NOTE | 2017-03-13 13:46 | GI REPORT ---
Procedure Date: 03/13/2017 1:26 PM Procedure: Colonoscopy Indications: Chronic diarrhea Medicines: Monitored Anesthesia Care Complications: No immediate complications. Estimated Blood Loss: Estimated blood loss: none. Procedure: Pre-Anesthesia Assessment: - Prior to the procedure, a History and Physical was performed, and patient medications and allergies were reviewed. The patient's tolerance of previous anesthesia was also reviewed. The risks and benefits of the procedure and the sedation options and risks were discussed with the patient. All questions were answered, and informed consent was obtained. Prior Anticoagulants: The patient has taken no previous anticoagulant or antiplatelet agents. ASA Grade Assessment: II - A patient with mild systemic disease. After reviewing the risks and benefits, the patient was deemed in satisfactory condition to undergo the procedure. After I obtained informed consent, the scope was passed under direct vision. Throughout the procedure, the patient's blood pressure, pulse, and oxygen saturations were monitored continuously. The Scope was introduced through the anus and advanced to the terminal ileum. The colonoscopy was performed without difficulty. The patient tolerated the procedure well. The quality of the bowel preparation was good. The terminal ileum, ileocecal valve, appendiceal orifice, and rectum were photographed. Findings: The colon (entire examined portion) appeared normal. Fluid aspiration for cytology was performed. Several random biopsies were obtained with cold forceps for histology in the entire colon. Impression: - The entire examined colon is normal. Fluid aspiration performed. - Several random biopsies were obtained in the entire colon. Recommendation: - Resume previous diet. - Continue present medications. - Repeat colonoscopy for surveillance based on pathology results. - Return to primary care physician as previously scheduled. Cuba Melendez, 03/13/2017 1:46:11 PM This report has been signed electronically. Note Initiated On: 03/13/2017 1:26 PM I attest to the content of the Intraoperative Record and orders documented therein, exceptions below
--- NOTE | 2017-03-13 13:57 | Anesthesiology Progress Note ---
Anesthesia Post Op Note Date & Time Mar 13, 2017 at 13:57 Vital Signs Pain Intensity: 0 Vital Signs Past 12 Hours Date Time Temp Pulse Resp B/P (MAP) Pulse Ox O2 Delivery O2 Flow Rate FiO2 03/13/17 13:48 87 16 145/79 (101) 98 Room Air 03/13/17 13:03 36.8 99 18 145/79 (101) 100 Room Air Notes Mental Status: alert / awake / arousable, participated in evaluation Pt Amnestic to Procedure: Yes Nausea / Vomiting: adequately controlled Pain: adequately controlled Airway Patency, RR, SpO2: stable & adequate BP & HR: stable & adequate Hydration State: stable & adequate Anesthetic Complications: no major complications apparent
[2017-03-13 14:17] VITALS: BP 145/83; PULSE 89; O2SAT 98
--- NOTE | 2017-03-13 14:23 | Discharge Instructions ---
Endoscopy Patient Instructions Date / Procedure(s) Performed Mar 13, 2017. Colonoscopy Allergy Information Coded Allergies: BEE STING (Verified Allergy, Severe, ANAPHYLAXIS, 03/13/17) Penicillins (Verified Allergy, Unknown, HIVES, 03/13/17) Uncoded Allergies: IODINE IN SHELLFISH (Allergy, Unknown, hives, 10/08/16) Discharge Date / Findings Mar 13, 2017. Random colon biopsies Stool studies collected Medication Instructions OK to resume all medications today as prescribed Reported Home Medications Medications Dose Route/Sig Max Daily Dose Days Date Category Dose Instructions Ranitidine HCl 150 Mg Tab 150 Mg PO BID PRN 03/10/17 Reported Epinephrine 0.3 Mg/0.3 Ml Inj 0.3 Mg IM UD PRN 03/10/17 Reported Losartan Potassium 50 Mg Tab 50 Mg PO BID 03/10/17 Reported Methocarbamol 750 Mg Tab 750 Mg PO QID PRN 03/10/17 Reported Pantoprazole Sodium (Pantoprazole) 40 Mg Tab 40 Mg PO QAM 03/10/17 Reported TAKE THIS MEDICATION ONCE DAILY 30 MINUTES BEFORE BREAKFAST Provider Instructions Activity Restrictions - No exercising or heavy lifting for 24 hours. - Do not drink alcohol the day of the procedure. - Do not drive a car or operate machinery until the day after the procedure. - Do not make any important decisions or sign important papers in 24 hours after the procedure. Following Day: - Return to full activity which may include returning to work/school. Diet Start your diet with liquids and light foods (jello, soup, juice, toast). Then eat your usual diet if not nauseated. Treatment For Common After Affects For mild abdominal pain, bloating, or excessive gas: - Rest - Eat lightly - Lie on right side Follow-Up Information Follow-up with DENIZ SHORT as scheduled Anesthesia Information What You Should Know You have had a procedure that required some medicine to reduce anxiety and discomfort. This treatment is called moderate sedation. After receiving the treatment, you may be sleepy, but you will be able to breathe on your own. The effects of the treatment may last for several hours. Follow these instructions along with Activity/Diet recommendations noted above: * Do NOT do anything where dizziness or clumsiness would be dangerous. * Rest quietly at home today, then you can be up and about tomorrow. * Have a responsible person stay with you the rest of today. * You may have had an I.V. today. If so, you may take the dressing off later today. Recommendations Call your doctor if: * Trouble breathing * Continuous vomiting for more than 24 hours * Temperature above 101 degrees * Severe abdominal pain or bloating * Pain not relieved by pain medicine ordered * There is increased drainage or redness from any incision * A large amount of rectal bleeding greater than 2-3 tablespoons. (If you had a polyp/s removed or have hemorrhoids, a small amount of blood - from the rectum is to be expected.) * You have any unanswered questions or concerns. IN THE EVENT OF A SERIOUS EMERGENCY, GO TO THE NEAREST EMERGENCY ROOM Your discharge instructions were prepared by provider Cuba Melendez. Patient Instructions Signature Page vOidio Thompson Patient (or Guardian) Signature/Date: I have read and understand the instructions given to me by my caregivers. Caregiver/RN/Doctor Signature/Date: The above-named patient and/or guardian has received patient instructions on this date. + Original Patient Signature Page (only) stays with chart. Please make copy for patient.
== END | disposition home or self-care (01) ==
LOC: C.GI 12:31
PROVIDERS: ATTEND Internal Medicine
DX: R19.7 Diarrhea, unspecified (principal); R19.4 Change in bowel habit

== ENCOUNTER → 2017-05-27 | Outpatient (CLI) | payer OTHER ==
[~2017-05-27] MED LIST changes: -LIDOCAINE HCL 2% 2 ML VIAL (20MG/ML) ONE; -MIDAZOLAM HCL 1 MG/ML 2ML VIAL ONE; -ONDANSETRON INJ 2 MG/ML 2 ML VIAL ONE; +PANT40TA2 PO; -PROPOFOL IV EMULSION 10 MG/ML 20 ML VIAL IV ONE; -PRT/40 PO; -SODIUM CHLORIDE 0.9% 500ML 500 ML IV ONE
--- NOTE | 2017-05-27 12:46 | DIAGNOSTIC IMAGING REPORT ---
(TESTICULAR) SCROTUM-CONT HISTORY: Pain TESTICULAR PAIN COMPARISON: None. FINDINGS: Right testis: Maximum linear dimension 5.2 cm. Normal vascular flow. Left testis: Maximum linear dimension 5.1 cm. Normal vascular flow. 4 mm left epididymal cyst. IMPRESSION: Normal testicular ultrasound. Normal vascular flow to both testis. 4 mm left epididymal cyst. The above report was generated using voice recognition software. It may contain grammatical, syntax or spelling errors. Electronically signed by: Hieu Fernandez M.D. 05/27/2017 12:44 PM Dictated Date/Time: 05/27/2017 12:43 PM
== END | disposition home or self-care (01) ==
LOC: C.ULTR 12:13
PROVIDERS: ATTEND Urology
DX: N50.819 Testicular pain, unspecified (principal); N50.3 Cyst of epididymis

== ENCOUNTER → 2017-06-10 | Outpatient (CLI) | payer OTHER ==
--- NOTE | 2017-06-10 10:45 | DIAGNOSTIC IMAGING REPORT ---
STANDING AP PELVIS RADIOGRAPH CLINICAL HISTORY: Possible leg length discrepancy. Lower abdominal pain. COMPARISON STUDY: CT of the abdomen and pelvis March 10, 2017 and pelvis radiograph July 04, 2013. FINDINGS: Sacroiliac joints and symphysis pubis are intact. No fracture or suspicious osseous lesion is present. The left femoral head is slightly more superiorly positioned than the right. However, this could be positional. Leg length cannot be assessed on this exam. IMPRESSION: 1. No acute fracture or osseous lesion within the pelvis or hips. 2. Slight superior positioning of the left femoral head with respect to the right. However, this could be technical/related to pelvic tilt. This does not necessarily reflect a leg length discrepancy and a leg length study could be performed as indicated. Electronically signed by: Harvey Shin M.D. 06/10/2017 10:44 AM Dictated Date/Time: 06/10/2017 10:40 AM
== END | disposition home or self-care (01) ==
LOC: C.RAD1850 09:34
PROVIDERS: ATTEND Neuromusculoskeletal Medicine & OMM
DX: M21.70 Unequal limb length (acquired), unspecified site (principal); R10.30 Lower abdominal pain, unspecified

== ENCOUNTER → 2017-06-10 | Outpatient (CLI) | payer OTHER ==
--- NOTE | 2017-06-10 15:04 | DIAGNOSTIC IMAGING REPORT ---
LEG LENGTH STUDY (WHOLE LEG) HISTORY: 42 years-old Male M21.70 Leg length discrepancy COMPARISON: Pelvic radiograph of same day, CT abdomen and pelvis 03/10/2017 TECHNIQUE: 2 frontal projections of the lower extremities and pelvis were obtained for leg length study FINDINGS: Right femoral head to right tibial plafond measures 88.9 cm. Left femoral head to left tibial plafond measures 90.4 cm. Cortical thickening with increased sclerosis involving the proximal femoral shaft is again seen with mild apex lateral angulation suggesting healed fracture deformity. Clips of the upper scrotum suggest prior vasectomy. IMPRESSION: 1. The left leg is 1.5 cm longer than the right. 2. Remote fracture deformity of the proximal right femur. The above report was generated using voice recognition software. It may contain grammatical, syntax or spelling errors. Electronically signed by: John Dowling M.D. 06/10/2017 3:03 PM Dictated Date/Time: 06/10/2017 2:58 PM
== END | disposition home or self-care (01) ==
LOC: C.RAD 14:15
PROVIDERS: ATTEND Neuromusculoskeletal Medicine & OMM
DX: M21.751 Unequal limb length (acquired), right femur (principal)

== ENCOUNTER 2017-08-21 13:27 | Emergency (ER) | payer OTHER ==
[~2017-08-21] VITALS: Ht 172.7 cm; Wt 92.6 kg
[~2017-08-21 13:27] MED LIST changes: -CZR50 PO; -EPIN1INJ37 IM; -PANT40TA2 PO
[2017-08-21 13:41] VITALS: TEMP 36.8; Ht 172.7 cm; Wt 92.6 kg
[2017-08-21] MEDS ORDERED: IBUPROFEN 800 MG TAB PO STA (15:45)
[2017-08-21] MEDS ORDERED: ACETAMINOPHEN 500 MG TAB PO STA (15:45)
[2017-08-21] MEDS ORDERED: LIFI5DRO OPB (15:56)
[2017-08-21] MEDS ORDERED: MDRDP21 PO (15:56)
[2017-08-21] MEDS ORDERED: PXL/10 PO (15:56)
--- NOTE | 2017-08-21 16:25 | DIAGNOSTIC IMAGING REPORT ---
HEAD CT NONCONTRAST CT DOSE: 638.56 mGycm HISTORY: Headache. TECHNIQUE: Multiaxial CT images of the head were performed without the use of intravenous contrast. Automated exposure control was utilized for this study. A dose lowering technique was utilized adhering to the principles of ALARA. Comparison: Head CT 10/12/2012. Findings: The paranasal sinuses and mastoid air cells are clear. The calvarium and skull base are intact. The ventricles and sulci are within normal limits. There is no mass, hematoma, midline shift, or acute infarct. Impression: No acute intracranial abnormality. Electronically signed by: Gianni Real M.D. 08/21/2017 4:24 PM Dictated Date/Time: 08/21/2017 4:19 PM
[2017-08-21] MEDS ORDERED: IBUP-1451 PO (16:41)
--- NOTE | 2017-08-21 16:43 | EMERGENCY ROOM VISIT NOTE ---
History Report prepared by Johana: Pallavi Partida Under the Supervision of: Dr. Diaz Alonso M.D. First contact with patient: 15:26 Chief Complaint: HEADACHE Stated Complaint: HEADACHE, TWITCHING EYE, CLOGGED EAR History of Present Illness The patient is a 42 year old male who presents to the Emergency Room with complaints of persistent headache starting 1 week ago. The patient notes that his symptoms started with right eye twitching 2 weeks ago. He went to the eye doctor and was prescribed eye drops. He stopped taking the eye drops yesterday. His headache started with the eye drops. The headache goes from the back of his neck into his head. He normally does not get headache. He has tried Tylenol to no significant relief. He is currently on day 4 of a prednisone taper. He denies any fever, chills, cough, congestion, nausea, vomiting, diarrhea, urinary symptoms, chest pain, and SOB. He is eating and drinking well. He denies any recent heavy lifting. He denies any drug or alcohol use. He does not smoke. He has a history of hypertension and anxiety. 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 He notes that he has had intermittent right ear pressure for the past year. Source of History: patient Onset: 1 week ago Position: head Quality: ache Timing: other (persistent) Associated Symptoms: No fevers, No chills, No cough, No chest pain, No SOB, No nausea, No vomiting, No diarrhea, No urinary symptoms Note: Pt reports right eye twitching. Review of Systems See HPI for pertinent positives and negatives. A total of ten systems were reviewed and were otherwise negative. Past Medical & Surgical Medical Problems: (1) Hypertension Family History Heart disease Social History Smoking Status: Never Smoker Alcohol Use: none Drug Use: none Marital Status: Housing Status: lives with family Occupation Status: employed Current/Historical Medications Scheduled Lifitegrast (Xiidra), 1 DROP OPB BID Losartan Potassium (Losartan Potassium), 50 MG PO BID Methylprednisolone (Methylprednisolone Dose P), PO UD Pantoprazole (Pantoprazole Sodium), 40 MG PO QAM Paroxetine (Paroxetine HCl), 10 MG PO DAILY Scheduled PRN Epinephrine (Epinephrine), 0.3 MG IM UD PRN for ALLERGIC REACTION Ibuprofen Tab (Motrin), 800 MG PO Q8H PRN for Pain Allergies Coded Allergies: BEE STING (Verified Allergy, Severe, ANAPHYLAXIS, 03/13/17) Penicillins (Verified Allergy, Unknown, HIVES, 03/13/17) Uncoded Allergies: IODINE IN SHELLFISH (Allergy, Unknown, hives, 10/08/16) Physical Exam Vital Signs Date Time Temp Pulse Resp B/P (MAP) Pulse Ox O2 Delivery O2 Flow Rate FiO2 08/21/17 16:55 73 20 149/98 99 Room Air 08/21/17 13:41 36.8 89 18 150/97 99 Room Air Physical Exam GENERAL: Awake, alert, well-appearing, in no distress HENT: Normocephalic, atraumatic. Oropharynx unremarkable. EYES: Normal conjunctiva. Sclera non-icteric. NECK: Supple. No nuchal rigidity. FROM. No JVD. RESPIRATORY: Clear to auscultation. CARDIAC: Regular rate, normal rhythm. Extremities warm and well perfused. Pulses equal. ABDOMEN: Soft, non-distended. No tenderness to palpation. No rebound or guarding. No masses. RECTAL: Deferred. MUSCULOSKELETAL: Chest examination reveals no tenderness. The back is symmetrical on inspection without obvious abnormality. There is no CVA tenderness to palpation. No joint edema. LOWER EXTREMITIES: Calves are equal size bilaterally and non-tender. No edema. No discoloration. NEURO: Normal sensorium. No sensory or motor deficits noted. Normal cerebellar function with [id number], alternating palms, [id number] SKIN: No rash or jaundice noted. Medical Decision & Procedures ER Provider Diagnostic Interpretation: Radiology results as stated below per my review and radiologist interpretation: HEAD CT NONCONTRAST CT DOSE: 638.56 mGycm HISTORY: Headache. TECHNIQUE: Multiaxial CT images of the head were performed without the use of intravenous contrast. Automated exposure control was utilized for this study. A dose lowering technique was utilized adhering to the principles of ALARA. Comparison: Head CT 10/12/2012. Findings: The paranasal sinuses and mastoid air cells are clear. The calvarium and skull base are intact. The ventricles and sulci are within normal limits. There is no mass, hematoma, midline shift, or acute infarct. Impression: No acute intracranial abnormality. Electronically signed by: Gianni Real M.D. 08/21/2017 4:24 PM Dictated Date/Time: 08/21/2017 4:19 PM Medications Administered Medications (Trade) Dose Ordered Sig/Elizabeth Route Start Time Stop Time Status Last Admin Dose Admin Ibuprofen (Motrin Tab) 800 mg NOW STAT PO 08/21/17 15:45 08/21/17 15:53 DC 08/21/17 16:01 800 MG Acetaminophen (Tylenol Tab) 1,000 mg NOW STAT PO 08/21/17 15:45 08/21/17 15:53 DC 08/21/17 16:01 1,000 MG ED Course 1544: The patient was evaluated in room A12A. A complete history and physical exam was performed. 1545: Acetaminophen 1000 mg PO, Ibuprofen 800 mg PO. 1652: I reevaluated the patient. Discussed results and discharge instructions: He verbalized understanding and agreement. The patient is ready for discharge. Medical Decision I reviewed the patient's past medical history, medications, and the nursing notes as described above. Differential diagnosis: Etiologies such as migraine headache, meningitis, sinusitis, CO exposure, ICH, SAH, infection, tumor, headache, sinus thrombosis, arterial dissection, as well as others were entertained. The patient is a 42-year-old gentleman with a past medical history of hypertension who presents emergency Department with 1 week of right-sided headache in the setting of having a right eye twitch that he was seen by ophthalmology for and treated with eyedrops, headache subsequently developing thereafter. He did see an ENT specialist for fullness in his right ear however per the patient had unremarkable evaluation, with a question of a hair on his TM which was removed but no impact in his symptoms. Patient has not taken Tylenol or ibuprofen except for twice earlier in the week. Exam the patient is well-appearing, no acute distress, afebrile stable vital signs. He is neurologically intact including normal cerebellar function with robcqp-cr-[id number], alternating palms, mztm-kz-krym. CT head was done to rule out possible of evolving malignancy given the patients no prior history of headaches. CT head was negative. Thus plan for PCP follow-up and patient will attempt regular NSAIDs and hydration. Findings and plan for follow-up reviewed with patient. Patient agreeable and d/c'd per discharge instructions. Medication Reconcilliation Current Medication List: was personally reviewed by me Blood Pressure Screening Patient's blood pressure: Elevated blood pressure Blood pressure disposition: Referred to PCP Impression Primary Impression: Tension headache Scribe Attestation The scribe's documentation has been prepared under my direction and personally reviewed by me in its entirety. I confirm that the note above accurately reflects all work, treatment, procedures, and medical decision making performed by me. Departure Information Dispostion Home / Self-Care Prescriptions Ibuprofen Tab (MOTRIN) 800 Mg Tab 800 MG PO Q8H Y for Pain, #21 TAB Prov: Diaz Alonso M.D. 08/21/17 Referrals Rey Ivan III, CRNP (PCP) Patient Instructions ED Headache Tension, [facility] Additional Instructions Please follow up with your primary care physician in the next 1-3 days for re- evaluation. Your headache is most consistent with a tension headache. This also could have possibly been provoked by her recent eyedrops use. Otherwise, your exam and CT scan of your head did not show signs of an emergent condition at this time. Acetaminophen or ibuprofen for pain and fevers as needed. Drink plenty of fluids to ensure hydration. Return to the emergency department for worsening symptoms as described in the accompanying instructions.
[2017-08-21 16:55] VITALS: BP 149/98; PULSE 73; O2SAT 99
[2017-08-21] MEDS ORDERED: CZR50 PO (21:21)
[2017-08-21] MEDS ORDERED: PANT40TA2 PO (21:21)
[2017-08-21] MEDS ORDERED: EPIN0.3I14 IM (21:21)
== END 2017-08-21 17:10 | disposition home or self-care (01) ==
LOC: C.EDB 13:28 → C.EDA 17:10
DX: G44.209 Tension-type headache, unspecified, not intractable (principal); I10 Essential (primary) hypertension; F41.9 Anxiety disorder, unspecified; Z88.0 Allergy status to penicillin; Z91.030 Bee allergy status; Z91.013 Allergy to seafood; Z82.49 Family history of ischemic heart disease and other diseases of the circulatory system

== ENCOUNTER → 2017-09-21 | Outpatient (CLI) | payer OTHER ==
[~2017-09-21] MED LIST changes: +CZR50 PO; +EPIN0.3I14 IM; +IBUP-1451 PO; +LIFI5DRO OPB; +MDRDP21 PO; +PANT40TA2 PO; +PXL/10 PO; -RANI150T2 PO; -RBX750 PO
[2017-09-21 14:38] LABS: BASO % 0.4 %; BASO ABS # 0.03 K/uL (0-0.2); EOS % 1.3 %; EOS ABS # 0.09 K/uL (0-0.5); HEMATOCRIT 38.9 % (42-52); HEMOGLOBIN 13.2 g/dL (14.0-18.0); IG# 0.01 K/uL (0.00-0.02); LYMPH % 21.8 %; LYMPH ABS # 1.47 K/uL (1.2-3.4); MEAN CELL VOLUME 86.6 fL (80-100); MEAN CORPUSCULAR HEMOGLOBIN 29.4 pg (25-34); MEAN CORPUSCULAR HGB CONC 33.9 g/dl (32-36); MEAN PLATELET VOLUME 9.5 fL (7.4-10.4); MONO % 9.6 %; MONO ABS # 0.65 K/uL (0.11-0.59); NEUT % 66.8 %; NEUT ABS # 4.49 K/uL (1.4-6.5); PLATELET COUNT 255 K/uL (130-400); RED CELL DISTRIBUTION WIDTH CV 12.6 % (11.5-14.5); RED CELL DISTRIBUTION WIDTH SD 40.5 fL (36.4-46.3); WHITE BLOOD COUNT 6.74 K/uL (4.8-10.8)
[2017-09-21 15:10] LABS: ALBUMIN 4.2 gm/dl (3.4-5.0); ALT/SGPT 21 U/L (12-78); BLOOD UREA NITROGEN 14 mg/dl (7-18); CARBON DIOXIDE 30 mmol/L (21-32); CREATININE 1.07 mg/dl (0.60-1.40); GLUCOSE 88 mg/dl (70-99); POTASSIUM 3.9 mmol/L (3.5-5.1); SODIUM 136 mmol/L (136-145)
[2017-09-21 15:13] LABS: ALKALINE PHOSPHATASE 72 U/L (45-117); AST/SGOT 14 U/L (15-37); TOTAL PROTEIN 7.9 gm/dl (6.4-8.2)
== END | disposition home or self-care (01) ==
LOC: C.LAB1850 13:47
PROVIDERS: ATTEND Psychiatry & Neurology Neurology
DX: R51 Headache (principal)

== ENCOUNTER → 2017-09-22 | Outpatient (CLI) | payer OTHER ==
[~2017-09-22] MED LIST changes: +GADAVIST IV PRN
--- NOTE | 2017-09-22 15:29 | DIAGNOSTIC IMAGING REPORT ---
MRI OF THE BRAIN AND IACS WITHOUT AND WITH IV CONTRAST CLINICAL HISTORY: BEAVERS, VERTIGO COMPARISON STUDY: 11/01/2012, head CT dated 08/21/2017 TECHNIQUE: MRI of the brain was performed from the vertex to the skull base utilizing various T1 and T2 weighted sequences. Following the IV administration of 9.5 mL of Gadavist contrast, additional enhanced images were obtained. FINDINGS: Sagittal T1, axial diffusion, proton density and T2 weighted axial, coronal FLAIR, and pre and post axial T1-weighted images were acquired. These were supplemented with post gadolinium coronal T1 weighted images. No intra or extra-axial mass lesions are visualized. Axial diffusion-weighted images reveal no evidence of acute or subacute infarction. There is no evidence of ventricular dilatation. Proton density T2-weighted and FLAIR images reveal no significant intraparenchymal signal abnormalities There are no abnormal flow voids. There is no evidence of pathologic enhancement. No cerebellopontine angle masses are visualized. The 7th and 8th nerve complexes appear normal bilaterally. IMPRESSION: Normal MRI of the brain. Electronically signed by: Reji Ortega M.D. 09/22/2017 3:28 PM Dictated Date/Time: 09/22/2017 3:25 PM
== END | disposition home or self-care (01) ==
LOC: C.MRI 13:48
PROVIDERS: ATTEND Nurse Practitioner Family
DX: R42 Dizziness and giddiness (principal); R51 Headache

== ENCOUNTER 2017-11-26 03:56 | Emergency (ER) | payer OTHER ==
[~2017-11-26] VITALS: Ht 172.7 cm; Wt 91.2 kg
[~2017-11-26 03:56] MED LIST changes: -GADAVIST IV PRN
[2017-11-26 03:59] VITALS: TEMP 37.3; Ht 172.7 cm; Wt 91.2 kg
[2017-11-26] MEDS ORDERED: AZIT250T PO (04:12)
[2017-11-26] MEDS ORDERED: OXYCODONE IR HOME PACK PO ONE (04:30)
[2017-11-26] MEDS ORDERED: CLINDAMYCIN 150MG HOME PACK PO ONE (04:30)
[2017-11-26] MEDS ORDERED: CLIN300C2 PO (04:32)
[2017-11-26] MEDS ORDERED: OXYC1TAB3 PO (04:32)
--- NOTE | 2017-11-26 04:33 | EMERGENCY ROOM VISIT NOTE ---
History First contact with patient: 04:07 Chief Complaint: DENTAL PAIN Stated Complaint: TOOTH ACHE,CAN'T SWALLOW,FACE HURTS Nursing Triage Summary: Pt c/o upper right dental pain, starting thursday. History of Present Illness The patient is a 42 year old male who presents to the Emergency Room with complaints of right upper dental pain. The patient reports that he began to have a toothache 2 days ago. He states that the pain is in the right upper molar. He had a root canal of the tooth 6 years ago. He was seen by his dentist yesterday and was put on azithromycin. The patient feels like the pain has been worsening. He states it is a throbbing, 10/10 pain and has been radiating into the face and neck. He reports he has been taking ibuprofen, 800 mg every 8 hours without relief. He denies facial swelling, fevers or drainage from the teeth. Review of Systems A complete 10 point review of systems was reviewed with the patient with pertinent positives and negatives as per history of present illness. All else were negative. Past Medical/Surgical History Medical Problems: (1) Hypertension Family History Heart disease Social History Smoking Status: Never Smoker Alcohol Use: none Drug Use: none Marital Status: Housing Status: lives with family Occupation Status: employed Current/Historical Medications Scheduled Azithromycin (Zithromax), 250 MG PO DIRECTED Clindamycin Hcl (Cleocin), 300 MG PO QID Losartan Potassium (Losartan Potassium), 50 MG PO BID Pantoprazole (Pantoprazole Sodium), 40 MG PO QAM Paroxetine (Paroxetine HCl), 10 MG PO DAILY Scheduled PRN Epinephrine (Epinephrine), 0.3 MG IM UD PRN for ALLERGIC REACTION Oxycodone Ir (Roxicodone Ir), 1-2 TAB PO Q4H PRN for Pain Physical Exam Vital Signs Date Time Temp Pulse Resp B/P (MAP) Pulse Ox O2 Delivery O2 Flow Rate FiO2 11/26/17 03:59 37.3 112 18 137/92 98 Room Air Physical Exam VITALS: Vitals are noted on the nurse's note and reviewed by myself. Vital signs stable. GENERAL: This is a 42-year-old male, in no acute distress, nondiaphoretic, well- developed well-nourished. SKIN: The skin was without rashes. EARS: External auditory canals clear, tympanic membranes pearly de la torre without erythema or effusion bilaterally. EYES: Pupils equal round and reactive to light and accommodation. MOUTH: Mucous membranes moist. There is no significant erythema or edema of the gums to suggest a drainable abscess. No drainage. No facial swelling. NECK: Supple without nuchal rigidity. No lymphadenopathy. HEART: Regular rate and rhythm without murmurs gallops or rubs. LUNGS: Clear to auscultation bilaterally without wheezes, rales or rhonchi. NEURO: Patient was alert and oriented to person place and time. Medical Decision & Procedures Medical Decision Differential diagnosis includes dental caries, dental abscess, Ryan's angina, facial cellulitis, among others. The patient was evaluated as above. There is no evidence of facial cellulitis, large drainable abscess or Ryan's angina. The patient is well-appearing. I do not feel that azithromycin is the most appropriate antibiotic choice and will switch him to clindamycin as he has a penicillin allergy. He was given a home pack and prescription for OxyIR to be taken as needed for pain. 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 He was educated to return for facial swelling, fevers, or other new/concerning symptoms. He verbalized understanding of my assessment and treatment plan and was discharged home in good condition. [facility] Drug Monitoring Program Search Results: patient reviewed within database, no issues identified Medication Reconcilliation Current Medication List: was personally reviewed by me Blood Pressure Screening Patient's blood pressure: Normal blood pressure Impression Primary Impression: Dentalgia Departure Information Dispostion Home / Self-Care Condition GOOD Prescriptions Oxycodone Ir (Roxicodone Ir) 5 Mg Tab 1-2 TAB PO Q4H Y for Pain, #15 TAB For Initial Treatment Prov: Lina Vo PA-C 11/26/17 Clindamycin Hcl (CLEOCIN) 300 Mg Cap 300 MG PO QID for 10 Days, #40 CAP Prov: Lina Vo PA-C 11/26/17 Referrals No Doctor, Assigned (PCP) Patient Instructions My [facility] Additional Instructions You have been treated in the Emergency Department for Dental Pain. You have been prescribed Oxy IR to be used for pain control. This is a narcotic medication. You cannot drive or consume alcohol while on this medicine. This medicine should only be used for pain that cannot be controlled with over-the- counter pain medicines. You were prescribed Clindamycin to be taken four times daily as prescribed. This is an antibiotic. All antibiotics have the potential to cause diarrhea. Stop this medication and contact a medical provider if you were to develop any significant adverse side effects including: wheezing, shortness of breath, passing out, vomiting, or a diffuse rash. Always take antibiotics as directed and COMPLETE the ENTIRE course regardless of the improvement of your symptoms. For pain control, you can use the following [id number] medicines (if >12 yo): - Regular strength (325mg/tab) Tylenol (acetaminophen) 2 tabs every 4-6 hours as needed. Do not exceed 12 tablets in a 24 hour period. Avoid taking more than 4 grams (4000 mg) of Tylenol per day. This includes any other sources of acetaminophen you may take on a regular basis. - Regular strength (200 mg/tab) Advil (ibuprofen) 3-4 tabs every 6 hours as needed. Do not exceed a dose of 3200 mg per day. Refrain from smoking cigarettes or using chewing tobacco until you have been evaluated by your dentist. Keeping beverages lukewarm and consuming soft foods can decrease your pain. Warm compresses over the affected area may offer some relief. You MUST seek evaluation of your dental pain by a dentist following your visit to the Emergency Department. The Emergency Department is not capable of treating dental issues long-term. You should call your dentist as soon as possible to make an appointment for evaluation of your dental pain. Return to the emergency department if you develop the following symptoms despite treatment course outlined above: fever, intractable pain, increased redness, swelling, or purulent discharge.
[2017-11-26 04:46] VITALS: BP 126/71; PULSE 76; O2SAT 99
== END 2017-11-26 04:47 | disposition home or self-care (01) ==
LOC: C.EDB 03:57
DX: K08.89 Other specified disorders of teeth and supporting structures (principal); I10 Essential (primary) hypertension; Z79.899 Other long term (current) drug therapy; Z88.0 Allergy status to penicillin